=== PATIENT | male | born 2000 | race Caucasian/White ===

== ENCOUNTER 2024-11-18 14:07 | Emergency (ER) | payer SELFPAY ==
[2024-11-18 14:22] VITALS: BP 127/89; PULSE 98; TEMP 36.6; O2SAT 98; BMI 27.4
--- NOTE | 2024-11-18 14:32 | PC.NURSE ---
red pimple to R facial cheek - feels like face is swollen and it hurts
--- NOTE | 2024-11-18 14:37 | ED.GENADUL1 ---
HPI HPI - General Adult General Chief complaint: Skin/Abscess/Foreign Body Stated complaint: BUG BITES Time Seen by Provider: 11/18/24 14:15 Source: patient and family Mode of arrival: walk-in Limitations: no limitations History of Present Illness HPI narrative: The patient is a 24-year-old male who presents to the emergency department today for evaluation of concerns for a red and painful spot on his right cheek. He endorses he woke up this morning with some swelling to the right cheek at the site he thought he had a pimple. Endorses he attempted to squeeze and pop this day ago. No fevers or sick symptoms of nausea and vomiting. Patient is not diabetic. The patient is here with his son who has multiple insect bites that he is concerned for infection in addition became concerned for infection himself. Related Data Allergies Allergy/AdvReac Type Severity Reaction Status Date / Time bee venom protein (honey bee) Allergy Severe facial Verified 11/18/24 14:24 swelling Review of Systems ROS Status of ROS 10 or more systems reviewed and unremarkable except as noted in history and below PFSH PFSH Social History Little interest or pleasure in doing things: not at all Feeling down, depressed, or hopeless: not at all Exam Narrative Exam Narrative: Constituational: Awake/ alert, no apparent distress, well hydrated HENMT: normocephalic, internal/external ears normal, moist oral mucous membranes and oropharynx normal Eyes: EOMI and conjunctivae normal Neck: ROM intact Chest: inspection of chest normal Respiratory: Normal respiratory effort MSK: No edema Skin: +single comedone to R cheek with minimal surrounding erythema and edema, no drainage, no rashes or petechiae Neuro: no focal deficits Psych: mental status grossly normal Constitutional Vital Signs, click to edit/add: Last Vital Signs Temp 98 F 11/18/24 14:22 Pulse 98 H 11/18/24 14:22 Resp 18 11/18/24 14:22 BP 127/89 11/18/24 14:22 Pulse Ox 98 11/18/24 14:22 O2 Del Method Room Air 11/18/24 14:22 Course Vital Signs Vital signs: Vital Signs Temperature 98 F 11/18/24 14:22 Pulse Rate 98 H 11/18/24 14:22 Respiratory Rate 18 11/18/24 14:22 Blood Pressure 127/89 11/18/24 14:22 Pulse Oximetry 98 11/18/24 14:22 Oxygen Delivery Method Room Air 11/18/24 14:22 Temperature 98 F 11/18/24 14:22 Pulse Rate 98 H 11/18/24 14:22 Respiratory Rate 18 11/18/24 14:22 Blood Pressure 127/89 11/18/24 14:22 Pulse Oximetry 98 11/18/24 14:22 Oxygen Delivery Method Room Air 11/18/24 14:22 Medical Decision Making MDM Narrative Medical decision making narrative: The patient is a well-appearing 24-year-old male who presents to the ER today for evaluation of concerns for a single area of redness and swelling to his right cheek. Initial examination patient with clinical evidence of a single comedome to the right cheek without evidence of abscess or cellulitis. Discussed this with the patient including recommendations for supportive care for acne. Advised on follow-up with patient's primary care provider for reevaluation as needed. Discussed signs and symptoms of any worsening condition and when to consider reevaluation by the emergency department. Patient verbalized an understanding of this and is agreeable with the plan to be discharged home. Medical Records Medical records reviewed: Yes I reviewed the patient's medical records Discharge Plan Discharge Chief Complaint: Skin/Abscess/Foreign Body Clinical Impression: Acne comedone Patient Disposition: Home, Self-Care Print Language: Chilean Instructions: Benzoyl Peroxide (On the skin), Antiacne Antibacterial (On the skin) Additional Instructions: Recommend washing twice a week with benzyl peroxide. Avoid picking or squeezing this area. May apply warm compresses. May use [id number] topicals such as Differin and use nonirritating face washes such as Cetaphil or Cerave. May additionally apply any pimple patches such as Neutrogena. With your primary care provider for reevaluation as needed. Referrals: RADHA EDEN [Primary Care Provider, Family Practice] - 1 week
--- OUTSIDE RECORDS SUMMARY | 2024-11-18 14:37 | XMS_ITS | Patient Health Record ---
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 Darien Rubio Primary Care Provider Reason For Referral No Information Plan Of Treatment No Information Insurance Providers Payer Name Payer Address Payer Phone Subscriber Number Group Number Insured Name Patient Relationship to Insured Coverage Start Date Coverage End Date zDENTAL DQ [employer] [address] [place] [address] [id number] CORONA PIPER Self - patient is the insured 1 zDental MEDICAID [employer] after [employer] [address] [place] [address] [id number] CORONA PIPER Self - patient is the insured 1
== END 2024-11-18 15:17 | disposition home or self-care (01) ==
PROVIDERS: Emergency Provider Emergency Medicine; PCP Family Medicine
DX: L70.0 Acne vulgaris (principal); L53.8 Other specified erythematous conditions; R22.9 Localized swelling, mass and lump, unspecified
CPT/HCPCS: 99284